=== PATIENT | female | born 1960 | race Caucasian/White ===

== ENCOUNTER 2016-08-24 14:32 | Emergency (ER) | payer SELFPAY ==
[2016-08-24 14:36] VITALS: BP 137/76
[2016-08-24 15:27] LABS: CHLORIDE,CL 103 mEq/L (98-106); SODIUM,NA 142 mEq/L (136-145)
[2016-08-24] MEDS ORDERED: Ketorolac 60 MG/2 ML SDV IM ONE (15:49)
[2016-08-24] MEDS ORDERED: Nitrofurantoin Monohydrate/Macrocrystalline 100 MG Cap PO ONE (16:06)
--- NOTE | 2016-08-24 16:08 | EDM.PDOC ---
ED HPI GENERAL MEDICAL PROBLEM - General Chief Complaint: General Stated Complaint: Neck pain Time Seen by Provider: 08/24/16 14:50 Source of Information: Reports: Patient History Limitations: Reports: No limitations - History of Present Illness INITIAL COMMENTS - FREE TEXT/NARRATIVE: History and physical: History of present illness: [Patient comes to the emergency room brought in by her . She complains of neck soreness. Symptoms have been present for the past 7-8 days. She reports that she was evaluated at the clinic in [place] on August 18. She was told that she had viral meningitis and she was prescribed a five-day course of Tamiflu. She had no blood testing,, urine testing or CSF testing at that appointment per her report. She finished this medicine on Thursday and continues to feel poorly. There have been times that she thought she had the stomach flu but the next day she felt improved. She felt pretty good yesterday and felt worse again today. She follows regularly with Kim Royal in the [facility]. Her biggest complaint is neck pain but she describes as a constant feeling. It is on both sides of her neck. She denies having any headaches and overt fevers. There have been episodes where she felt warm but did not check her temperature. She has not had any chills. She has had a cough on and off for the past week which is occasionally productive for green sputum. She had one episode of vomiting this morning but does not have any abdominal pain. She denies muscle and joint aches and pains. She has been in a monogamous relationship for the past 11 years. She continues to smoke one half pack per day. No recent international travel. she denies exposure to wood ticks and rodents. denies any change in mentation or mood. Review of Systems: As per history of present illness and below otherwise all systems reviewed and negative. Past medical history: As per history of present illness and as reviewed below otherwise noncontributory. Surgical history: As per history of present illness and is reviewed below other hwang noncontributory. Social history: No reported history of drug or alcohol abuse. Family history: As per history of present illness and is reviewed below otherwise noncontributory. Physical exam: HEENT: Atraumatic, normocephalic. PERRLA. EOMI. Oral mucous membranes are pink and moist. No tonsillar swelling erythema or exudate. Neck: Supple. No meningismus. No nuchal rigidity. Small shotty anterior and posterior cervical lymph nodes bilaterally. No supraclavicular lymph nodes appreciated. Tenderness is relieved w/ gentle massage. Lungs: Clear to auscultation. No wheezing crackles or rales. chest nontender. Heart: S1-S2, regular rate and rhythm. Abdomen: Soft, nondistended, nontender. No masses guarding or rebound.. Negative for costovertebral tenderness. Genitourinary: Deferred. Rectal: Deferred. Extremities: atraumatic, no cyanosis or edema. Neurovascular unremarkable. Neuro: Awake, alert, oriented. Cranial nerves II through XII unremarkable. No meningeal signs noted on exam. Motor and sensory unremarkable throughout. Exam nonfocal. Psych: Alert oriented. Pleasant and conversational. Diagnostics: [CBC, CMP, urinalysis, influenza, mono, urine culture Therapeutics: [Toradol 60 mg IM, Macrobid by mouth x1] Impression: [UTI, viral illness] Plan: [ other than urinalysis showing infection patient's lab results are unremarkable.Rx written for Macrobid (#13) si po BID x 7 days 0 RF's. Rx written for ketorolac 10mg (#20) si po q 6 hours prn pain 0 RF's. Discussed with patient that her symptoms certainly do not appear consistent with meningits , but the definitive diagnosis would be made with an analysis of CSF. She is not interested in having this procedure done at this time. She agrees to push fluids, get plenty of rest, OTC analgesics and follow up with PCP in the next couple of days. Strict return precautions are discussed w/ patient.she is in agreement with today's plan. all of her questions are answered and concerns are addressed. ] Definitive disposition and diagnosis is appropriate pending reevaluation and review of above. Neck Pain Score (Numeric/FACES): 7 - Related Data Allergies Allergy/AdvReac Type Severity Reaction Status Date / Time No Known Allergies Allergy Verified 08/24/16 14:36 Home Meds: Home Meds . [No Known Home Meds] 08/24/16 [History] Past Medical History - Past Surgical History Female Surgical History: Reports: Hysterectomy Musculoskeletal Surgical History: Reports: Other (see below) Other Musculoskeletal Surgeries/Procedures:: FOOT SURGERY X 4 Social & Family History - Tobacco Use Smoking Status *Q: Current Every Day Smoker Years of Tobacco use: 38 Packs/Tins Daily: 0.5 - Caffeine Use Caffeine Use: Reports: Coffee - Recreational Drug Use Recreational Drug Use: No ED ROS GENERAL - Review of Systems Review Of Systems: ROS reveals no pertinent complaints other than HPI. ED EXAM, GENERAL - Physical Exam Exam: See Below Course - Vital Signs Last Recorded V/S: Last Vital Signs Temp 100.0 F 08/24/16 14:32 Pulse 89 08/24/16 14:32 Resp 16 08/24/16 14:32 BP 137/76 08/24/16 14:32 Pulse Ox 96 08/24/16 14:32 - Orders/Labs/Meds Orders: Active Orders 24 hr Category Date Time Status CULTURE URINE [RM] Stat Lab 08/24/16 15:40 Received Labs: Laboratory Tests 08/24/16 08/24/16 08/24/16 Range/Units 15:05 15:05 15:05 WBC 10.1 H (5.0-10.0) 10^3/uL RBC 4.40 (4.00-5.50) 10^6/uL Hgb 13.2 (12.0-16.0) g/dL Hct 40.6 (37.0-47.0) % MCV 92.3 (82.0-94.0) fL MCH 30.0 (27.0-32.0) pg MCHC 32.5 L (33.0-38.0) g/dL RDW Coeff of Samuel 13.1 (11.0-15.0) % Plt Count 278 (150-400) 10^3/uL Neut % (Auto) 72.8 (35-85) % Lymph % (Auto) 15.9 (10-55) % Yell % (Auto) 10.8 (0-16) % Eos % (Auto) 0.4 (0-5) % Baso % (Auto) 0.1 (0-3) % Neut # (Auto) 7.34 H (1.80-7.00) 10^3/uL Lymph # (Auto) 1.60 (1.00-4.80) 10^3/uL Yell # (Auto) 1.09 H (0.00-0.80) 10^3/uL Eos # (Auto) 0.04 (0.00-0.45) 10^3/uL Baso # (Auto) 0.01 10^3/uL Sodium 142 (136-145) mEq/L Potassium 3.9 (3.5-5.0) mEq/L Chloride 103 (98-106) mEq/L Carbon Dioxide 31 (21-32) mmol/L BUN 14 (7-18) mg/dL Creatinine 0.8 (0.6-1.0) mg/dL Est Cr Clr Drug Dosing 71.35 mL/min Estimated GFR (MDRD) > 60 (>=60) mL/min Glucose 106 H (75-99) mg/dL Calcium 8.3 L (8.4-10.1) mg/dL Total Bilirubin 0.5 (0.0-1.0) mg/dL AST 16 (15-37) U/L ALT 11 L (12-78) U/L Alkaline Phosphatase 66 (46-116) U/L Total Protein 6.7 (6.4-8.2) g/dL Albumin 3.0 L (3.4-5.0) g/dL Urine Color (YELLOW) Urine Appearance (CLEAR) Urine pH (4.5-8.0) Ur Specific [place] (1.003-1.020) Urine Protein (NEGATIVE) mg/dL Urine Glucose (UA) (NEGATIVE) mg/dL Urine Ketones (NEGATIVE) mg/dL Urine Occult Blood (NEGATIVE) Urine Nitrite (NEGATIVE) Urine Bilirubin (NEGATIVE) Urine Urobilinogen (0.2-1.0) EU/dL Ur Leukocyte Esterase (NEGATIVE) Urine RBC (0-5) /HPF Urine WBC (0-5) /HPF Ur Epithelial Cells (NOT SEEN) /HPF Urine Bacteria (NOT SEEN) /HPF Monoscreen Negative 08/24/16 Range/Units 15:20 WBC (5.0-10.0) 10^3/uL RBC (4.00-5.50) 10^6/uL Hgb (12.0-16.0) g/dL Hct (37.0-47.0) % MCV (82.0-94.0) fL MCH (27.0-32.0) pg MCHC (33.0-38.0) g/dL RDW Coeff of Samuel (11.0-15.0) % Plt Count (150-400) 10^3/uL Neut % (Auto) (35-85) % Lymph % (Auto) (10-55) % Yell % (Auto) (0-16) % Eos % (Auto) (0-5) % Baso % (Auto) (0-3) % Neut # (Auto) (1.80-7.00) 10^3/uL Lymph # (Auto) (1.00-4.80) 10^3/uL Yell # (Auto) (0.00-0.80) 10^3/uL Eos # (Auto) (0.00-0.45) 10^3/uL Baso # (Auto) 10^3/uL Sodium (136-145) mEq/L Potassium (3.5-5.0) mEq/L Chloride (98-106) mEq/L Carbon Dioxide (21-32) mmol/L BUN (7-18) mg/dL Creatinine (0.6-1.0) mg/dL Est Cr Clr Drug Dosing mL/min Estimated GFR (MDRD) (>=60) mL/min Glucose (75-99) mg/dL Calcium (8.4-10.1) mg/dL Total Bilirubin (0.0-1.0) mg/dL AST (15-37) U/L ALT (12-78) U/L Alkaline Phosphatase (46-116) U/L Total Protein (6.4-8.2) g/dL Albumin (3.4-5.0) g/dL Urine Color Yellow (YELLOW) Urine Appearance Slightly cloudy (CLEAR) Urine pH 6.0 (4.5-8.0) Ur Specific [place] 1.008 (1.003-1.020) Urine Protein Negative (NEGATIVE) mg/dL Urine Glucose (UA) Negative (NEGATIVE) mg/dL Urine Ketones Negative (NEGATIVE) mg/dL Urine Occult Blood Negative (NEGATIVE) Urine Nitrite Positive H (NEGATIVE) Urine Bilirubin Negative (NEGATIVE) Urine Urobilinogen 0.2 (0.2-1.0) EU/dL Ur Leukocyte Esterase Trace H (NEGATIVE) Urine RBC Not seen (0-5) /HPF Urine WBC 0-5 (0-5) /HPF Ur Epithelial Cells Few H (NOT SEEN) /HPF Urine Bacteria Many H (NOT SEEN) /HPF Monoscreen Meds: Medications Discontinued Medications Generic Name Dose Route Start Last Admin Trade Name [place] PRN Reason Stop Dose Admin Ketorolac Tromethamine 60 mg 08/24/16 15:49 08/24/16 15:55 Toradol IM 08/24/16 15:50 60 mg ONETIME ONE Administration Nitrofurantoin Macrocrystals 100 mg 08/24/16 16:06 08/24/16 16:15 Macrobid PO 08/24/16 16:07 100 mg ONETIME ONE Administration Departure - Departure Time of Disposition: 16:20 Disposition: Home, Self-Care 01 Condition: good Clinical Impression: Viral illness UTI (urinary tract infection) Qualifiers: Urinary tract infection type: site unspecified Hematuria presence: without hematuria Qualified Code(s): N39.0 - Urinary tract infection, site not specified Referrals: Kim Royal PA-C [Primary Care Provider] - Forms: ED Department Discharge Additional Instructions: The following information is given to patients seen in the emergency department who are being discharged home. This information is to outline your options for follow-up care and provides all patient seen in our emergency department with a follow-up referral. The need for follow-up, as well as the timing and circumstances, are variable depending upon the specifics of each emergency department visit. If you don't have a primary care physician on staff, we will provide you with a referral. We always advise to contact your personal physician following an emergency department visit to inform them of the circumstances of the visit and for follow-up with them and/or the need for any referrals to a consulting specialist. The emergency department will also refer you to a specialist when appropriate. This referral assures that you have the opportunity for follow-up care with a specialist. All of these measures are taken in an effort to provide you with optimal care, which includes your follow-up. Under all circumstances we always encourage you to contact your private physician who remains a resource for coordinating your care. When calling for follow-up care, please make the office aware that this follow-up is from your recent emergency room visit. If for any reason you are refused follow-up please contact the [facility] emergency department at and ask to speak to the emergency department nurse. [place] [phone] Followup with your local primary care provider or at the clinic listed above in 48-72 hours. Take Macrobid twice daily as prescribed. You are given the first dose in the ER. You will need to fill your Rx at the pharmacy tomorrow. Push fluids, get plenty of rest. Take Tylenol 2 tablets every 4-6 hours, okay to take ketorolac with this. Fill ketorolac Rx at local pharmacy tomorrow. Return to ER as needed as discussed. - My Orders Last 24 Hours: My Active Orders 08/24/16 15:40 CULTURE URINE [RM] Stat - Assessment/Plan Last 24 Hours: My Active Orders 08/24/16 15:40 CULTURE URINE [RM] Stat
== END 2016-08-24 16:35 | disposition home or self-care (01) ==
LOC: CC.ED 14:32
DX: N39.0 Urinary tract infection, site not specified (principal); B34.9 Viral infection, unspecified; M54.2 Cervicalgia; F17.210 Nicotine dependence, cigarettes, uncomplicated; Z90.710 Acquired absence of both cervix and uterus
CPT/HCPCS: 36415; 80053; 81001; 85025; 86308; 87086; 87088; 87804; 96372; 99283; A9270; J1885; 87186